=== PATIENT | female | born 1970 | race Caucasian/White ===

== ENCOUNTER 2018-03-13 20:50 | Emergency (ER) | payer OTHER, SELFPAY ==
--- NOTE | 2018-03-13 22:52 | RAD ---
THREE VIEWS LUMBAR SPINE: 03/13/18 HISTORY: Low back pain and right hip pain. FINDINGS: There are five nonribbearing lumbar type vertebral bodies. The vertebral body heights are within norm al limits. No fracture or subluxation is seen. Minimal osteophytes are seen anteriorly in the lower l umbar spine as well as at the T10-11 level. Phleboliths overlie the pelvis. Surgical clips overlie th e right upper quadrant. IMPRESSION: Minimal degenerative changes of the lumbar spine, but no fracture or subluxation is seen. POS: [facility]UL[facility]
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
[2018-03-13] MEDS ORDERED: Ketorolac Tromethamine 30 MG/ML VIAL ONE (23:05)
== END 2018-03-13 23:39 | disposition home or self-care (01) ==
LOC: ERS 20:50
DX: M25.551 Pain in right hip (principal); E03.9 Hypothyroidism, unspecified; G43.909 Migraine, unspecified, not intractable, without status migrainosus; F41.9 Anxiety disorder, unspecified; F32.9 Major depressive disorder, single episode, unspecified; F17.210 Nicotine dependence, cigarettes, uncomplicated; Z79.899 Other long term (current) drug therapy; V89.2XXA Person injured in unspecified motor-vehicle accident, traffic, initial encounter
CPT/HCPCS: 72100; 96372; J1885

== ENCOUNTER 2018-07-09 14:15 | Outpatient (CLI) | payer OTHER ==
--- NOTE | 2018-07-09 15:58 | RAD ---
RIGHT LEG 2 VIEWS: Date: 07/09/18 HISTORY: Pain in right mid holder/leg. FINDINGS/IMPRESSION: No bony abnormality is seen. POS: [facility]
== END 2018-07-09 14:16 | disposition home or self-care (01) ==
LOC: RAD-FRANK 14:15
PROVIDERS: ATTEND Nurse Practitioner Family
DX: M79.661 Pain in right lower leg (principal); M79.89 Other specified soft tissue disorders

== ENCOUNTER 2021-06-27 15:32 | Outpatient (CLI) | payer OTHER | END 2021-06-27 15:33 | disposition home or self-care (01) | LOC: DTY/OP 15:32 | PROVIDERS: ATTEND Specialist | DX: Z01.818 Encounter for other preprocedural examination (principal); E66.01 Morbid (severe) obesity due to excess calories | CPT/HCPCS: 97802 ==

== ENCOUNTER 2021-10-30 10:29 | Outpatient (CLI) | payer OTHER | END 2021-10-30 10:30 | disposition home or self-care (01) | LOC: DTY/OP 10:29 | PROVIDERS: ATTEND Specialist | DX: Z01.818 Encounter for other preprocedural examination (principal); E66.01 Morbid (severe) obesity due to excess calories; Z71.3 Dietary counseling and surveillance | CPT/HCPCS: 97802 ==

== ENCOUNTER 2022-01-07 07:52 | Emergency (ER) | payer OTHER, SELFPAY | END 2022-01-07 08:58 | disposition home or self-care (01) | LOC: ERS 07:52 | DX: U07.1 COVID-19 (principal); E03.9 Hypothyroidism, unspecified; F17.210 Nicotine dependence, cigarettes, uncomplicated; Z79.899 Other long term (current) drug therapy | CPT/HCPCS: 99283; U0003; U0005 ==

== ENCOUNTER 2022-04-17 12:30 | Inpatient (IN) | payer OTHER ==
[2022-05-15 09:13] VITALS: BMI 37.9
[2022-05-16] MEDS ORDERED: Heparin 5,000 UNITS/ML VIAL ONE (06:11)
[2022-05-16] MEDS ORDERED: Ketorolac Tromethamine 30 MG/ML VIAL ONE ×2 (06:11→12:29)
[2022-05-16] MEDS ORDERED: Acetaminophen 500 MG TAB ONE (06:11)
[2022-05-16] MEDS ORDERED: SUGAMMADEX SODIUM 200 MG/2 ML VIAL ONE (06:15)
[2022-05-16] MEDS ORDERED: fentaNYL PF 100 MCG/2 ML SYRINGE ONE ×2 (06:15→10:18)
[2022-05-16] MEDS ORDERED: Bupivacaine/Epinephrine 0.25% 30 ML VIAL ONE (06:23)
[2022-05-16] MEDS ORDERED: Midazolam HCl 2 mg/2 ml Vial ONE (06:41)
[2022-05-16 06:44] LABS: SARS-CoV-2 NAA Rapid Test Not Detected (NotDetected)
[2022-05-16] MEDS ORDERED: cefOXitin 2 GM VIAL ONE (06:48)
[2022-05-16] MEDS ORDERED: Promethazine HCl 25 MG/ML VIAL IVPB PRN (06:48)
[2022-05-16] MEDS ORDERED: Ondansetron HCl/PF 4 MG/2 ML Vial IVP PRN (06:48)
[2022-05-16] MEDS ORDERED: Sodium Chloride 0.9% 100 ML ONE (06:48)
[2022-05-16] MEDS ORDERED: Promethazine HCl 25 MG/ML VIAL IM PRN (06:48)
[2022-05-16] MEDS ORDERED: diphenhydrAMINE 50 MG/ML VIAL ONE (06:54)
[2022-05-16] MEDS ORDERED: Ondansetron PF 4 MG/2 ML Vial ONE (06:54)
[2022-05-16] MEDS ORDERED: PROPOFOL 200 MG/20 ML VIAL ONE (06:54)
[2022-05-16] MEDS ORDERED: Dexamethasone 20 MG/5 ML VIAL ONE (06:54)
[2022-05-16] MEDS ORDERED: Rocuronium Bromide 10 MG/ML (10ML VIAL) ONE (06:54)
[2022-05-16] MEDS ORDERED: hydrALAZINE 20 MG/ML VIAL SLOW IVP PRN (07:03)
[2022-05-16] MEDS ORDERED: diphenhydrAMINE 50 MG/ML VIAL IVP PRN (07:03)
[2022-05-16] MEDS ORDERED: Ondansetron PF 4 MG/2 ML Vial IVP PRN (07:03)
[2022-05-16] MEDS ORDERED: D5 1/2 NS w/20 mEq KCL 1,000 ML ONE (10:00)
[2022-05-16] MEDS: D5 1/2 NS w/20 mEq KCL 1,000 ML IV SCH ×3 (10:04→23:18)
[2022-05-16] MEDS: Pantoprazole 40 MG VIAL IVP SCH (10:25)
[2022-05-16] MEDS ORDERED: FENTANYL 50 MCG/ML 1 ML VIAL SLOW IVP PRN (12:03)
[2022-05-16] MEDS: Losartan 25 MG TAB PO SCH (12:30)
[2022-05-16] MEDS: Ketorolac Tromethamine 30 MG/ML VIAL IVP SCH ×3 (12:30→23:18)
[2022-05-16] MEDS: FLUoxetine HCl 20 MG CAP PO SCH ×2 (12:30→20:40)
[2022-05-16] MEDS ORDERED: FENTANYL 50 MCG/ML 1 ML VIAL ONE (14:17)
[2022-05-16] MEDS: Hydrocodone-Acetamin 15 ML UDCUP PO PRN ×2 (16:24→20:38)
[2022-05-16] MEDS ORDERED: traZODone HCl 50 MG TAB PO SCH (21:00)
[2022-05-16] MEDS ORDERED: Enoxaparin Sodium 40 MG/0.4 ML SYRINGE SC SCH (21:00)
[2022-05-16] MEDS ORDERED: Gabapentin 300 MG CAP PO SCH (21:00)
[2022-05-17] MEDS: Ketorolac Tromethamine 30 MG/ML VIAL IVP SCH (05:26)
[2022-05-17] MEDS: Hydrocodone-Acetamin 15 ML UDCUP PO PRN (05:27)
[2022-05-17 05:54] LABS: #Basophils 0.1 thou/uL (0.0-0.2); #Lymphocytes 1.8 thou/uL (1.20-3.40); #Monocytes 0.9 thou/uL (0.11-0.59); #Neutrophils 15.2 thou/uL (1.40-6.50); %Basophils 0.3 % (0.0-1.0); %Eosinophils 0.1 % (0.0-10.0); %Lymphocytes 9.9 % (21.0-51.0); %Monocytes 5.1 % (0.0-10.0); %Neutrophils 84.5 % (42.0-75.0); Hemoglobin 13.4 g/dL (12.0-16.0); Mean Corpuscular HGB CONC 32.8 g/dL (32.0-36.0); Mean Corpuscular Hemoglobin 30.9 pg (27.0-31.0); Mean Corpuscular Volume 94.1 fl (78.0-98.0); Mean Platelet Volume 8.7 fL (7.4-10.4); Platelet Count 173 10x3/uL (130-400); RBC Distribution Width 12.2 % (11.5-14.5); Red Blood Cell (RBC) Count 4.34 mill/uL (4.20-5.40); White Blood Cell (WBC) Count 17.9 10x3/uL (4.8-10.8)
[2022-05-17] MEDS ORDERED: Thyroid 30 MG TAB PO SCH (06:00)
[2022-05-17 06:15] LABS: Anion Gap 13 mmol/L (10-20); BUN (Urea Nitrogen) 12 mg/dL (9.8-20.1); Calc. Creatinine Clearance 132 mL/min (70-130); Calcium 8.8 mg/dL (7.8-10.44); Carbon Dioxide 22 mmol/L (22-29); Chloride 107 mmol/L (98-107); Estimated GFR 83; Glucose 121 mg/dL (70-105); Potassium 3.9 mmol/L (3.5-5.1); Sodium 138 mmol/L (136-145)
[2022-05-17] MEDS: D5 1/2 NS w/20 mEq KCL 1,000 ML IV SCH (06:30)
[2022-05-17 08:32] VITALS: BP 132/79; TEMP 97.8
[2022-05-17] MEDS: FLUoxetine HCl 20 MG CAP PO SCH (09:46)
[2022-05-17] MEDS: Losartan 25 MG TAB PO SCH (09:46)
[2022-05-17] MEDS: Pantoprazole 40 MG VIAL IVP SCH (09:46)
[2022-05-17] MEDS ORDERED: Hydrocodone-Acetamin 15 ML UDCUP PO PRN (11:09)
== END 2022-05-17 12:00 | disposition home or self-care (01) | DRG 621 ==
LOC: SURG A 05-16 05:47
PROVIDERS: ADMIT Specialist; ATTEND Specialist
PROC: 0D164ZA Bypass Stomach to Jejunum, Percutaneous Endoscopic Approach (ICD-10-PCS; principal; 2022-05-16)
DX: E66.01 Morbid (severe) obesity due to excess calories (principal); Z68.41 Body mass index [BMI] 40.0-44.9, adult; G47.33 Obstructive sleep apnea (adult) (pediatric); E78.00 Pure hypercholesterolemia, unspecified; I10 Essential (primary) hypertension; I25.10 Atherosclerotic heart disease of native coronary artery without angina pectoris; G43.909 Migraine, unspecified, not intractable, without status migrainosus; K21.9 Gastro-esophageal reflux disease without esophagitis; R32 Unspecified urinary incontinence; Z20.822 Contact with and (suspected) exposure to COVID-19; Z90.49 Acquired absence of other specified parts of digestive tract; Z90.710 Acquired absence of both cervix and uterus; Z98.890 Other specified postprocedural states; Z88.8 Allergy status to other drugs, medicaments and biological substances; Z88.0 Allergy status to penicillin; Z88.1 Allergy status to other antibiotic agents
CPT/HCPCS: 36415; 80048; 85025; A4649; C1713; C1889; C9113; J0694; J1100; J1200; J1644; J1650; J1885; J2250; J2405; J2704; J3010; J3480; J3490; U0002

== ENCOUNTER 2022-05-14 11:54 | Outpatient (CLI) | payer OTHER ==
[2022-05-14 13:17] LABS: #Basophils 0.1 10x3/uL (0.0-0.2); #Eosinphils 0.2 10x3/uL (0.0-0.5); #Monocytes 0.6 10x3/uL (0.0-1.1); #Neutrophils 5.7 10x3/uL (1.5-8.4); %Basophils 0.5 % (0.0-2.0); %Eosinophils 1.9 % (0.0-6.0); %Lymphocytes 33.7 % (18.0-47.0); %Monocytes 6.2 % (0.0-10.0); %Neutrophils 57.3 % (40.0-75.0); Hemoglobin 13.4 g/dL (12.0-15.5); Mean Corpuscular HGB CONC 33.2 g/dL (32.0-36.0); Mean Corpuscular Volume 90.4 fl (81.6-98.3); Mean Platelet Volume 10.9 fl (7.4-10.4); Platelet Count 213 10x3/uL (150-450); RBC Distribution Width 13.1 % (11.5-14.5); Red Blood Cell (RBC) Count 4.47 10x6/uL (3.90-5.03); White Blood Cell (WBC) Count 9.9 10x3/uL (3.5-10.5)
[2022-05-14 13:42] LABS: Anion Gap 14 mmol/L (10-20); BUN (Urea Nitrogen) 24 mg/dL (9.8-20.1); Calc. Creatinine Clearance 0 mL/min (70-130); Calcium 9.2 mg/dL (7.8-10.44); Carbon Dioxide 23 mmol/L (22-29); Chloride 105 mmol/L (98-107); Estimated GFR 76; Glucose 93 mg/dL (70-105); Potassium 4.1 mmol/L (3.5-5.1); Sodium 138 mmol/L (136-145)
[2022-05-14 17:11] LABS: Hemoglobin A1c 5.4 % (4.0-6.0)
== END 2022-05-14 11:55 | disposition home or self-care (01) ==
LOC: LABBT 11:54
PROVIDERS: ATTEND Specialist
DX: Z01.812 Encounter for preprocedural laboratory examination (principal); E66.01 Morbid (severe) obesity due to excess calories; G47.33 Obstructive sleep apnea (adult) (pediatric); I10 Essential (primary) hypertension
CPT/HCPCS: 80048; 83036; 85025; 93005; 93010

== ENCOUNTER 2022-06-28 13:18 | Outpatient (CLI) | payer BC, OTHER | END 2022-06-28 13:19 | disposition home or self-care (01) | LOC: CT 13:18 | PROVIDERS: ATTEND Specialist | DX: K57.32 Diverticulitis of large intestine without perforation or abscess without bleeding (principal) | CPT/HCPCS: 74177 ==

== ENCOUNTER 2022-10-07 08:11 | Emergency (ER) | payer BC ==
[2022-10-07] MEDS ORDERED: Ondansetron PF 4 MG/2 ML Vial ONE (09:09)
[2022-10-07] MEDS ORDERED: fentaNYL 50 mcg/mL 1 mL Vial ONE (09:09)
[2022-10-07 09:18] LABS: #Eosinphils 0.1 thou/uL (0.0-0.7); #Lymphocytes 2.2 thou/uL (1.20-3.40); #Monocytes 0.6 thou/uL (0.11-0.59); #Neutrophils 8.3 thou/uL (1.40-6.50); %Basophils 0.2 % (0.0-1.0); %Eosinophils 1.2 % (0.0-10.0); %Lymphocytes 19.5 % (21.0-51.0); %Monocytes 5.1 % (0.0-10.0); Hemoglobin 12.4 g/dL (12.0-16.0); Mean Corpuscular HGB CONC 33.6 g/dL (32.0-36.0); Mean Corpuscular Hemoglobin 30.8 pg (27.0-31.0); Mean Corpuscular Volume 91.6 fl (78.0-98.0); Mean Platelet Volume 9.3 fL (7.4-10.4); Platelet Count 141 10x3/uL (130-400); RBC Distribution Width 13.9 % (11.5-14.5); Red Blood Cell (RBC) Count 4.02 mill/uL (4.20-5.40); White Blood Cell (WBC) Count 11.2 10x3/uL (4.8-10.8)
[2022-10-07 09:35] LABS: Bilirubin Negative (Negative); Blood, Urine Negative (Negative); Glucose, Urine (Dipstick) Normal (Negative); Ketone, Urine Negative (Negative); Leukocyte Negative Leu/uL (Negative); Nitrite Negative (Negative); Protein, Urine (Dipstick) Negative (Neg-Trace); Specific Gravity, Urine 1.022 (1.002-1.036); Urobilinogen Normal mg/dL (Less than 2)
[2022-10-07 09:40] LABS: ALT (SGPT) 33 U/L (8-55); AST (SGOT) 18 U/L (5-34); Albumin 3.8 g/dL (3.5-5.0); Alkaline Phosphatase 80 U/L (40-110); Anion Gap 12 mmol/L (10-20); BUN (Urea Nitrogen) 23 mg/dL (9.8-20.1); Bilirubin, Total 0.4 mg/dL (0.2-1.2); Calc. Creatinine Clearance 0 mL/min (70-130); Calcium 8.8 mg/dL (7.8-10.44); Carbon Dioxide 25 mmol/L (22-29); Chloride 105 mmol/L (98-107); Estimated GFR 88; Globulin 2.5 g/dL (2.4-3.5); Glucose 88 mg/dL (70-105); Lipase 14 U/L (8-78); Potassium 3.9 mmol/L (3.5-5.1); Protein, Total 6.3 g/dL (6.0-8.3); Sodium 138 mmol/L (136-145)
[2022-10-07 09:42] LABS: Clarity Hazy (Clear)
[2022-10-07 09:43] LABS: Pregnancy Test - Urine (BHCG) Negative (Negative); Pregu Control Background? CLEAR/WHITE (CLR/WHITE); Pregu Control Bar Appear? YES (CONTROL BAR); Specific Gravity 1.022 (1.002-1.036)
[2022-10-07] MEDS ORDERED: Iopamidol-370 76% 500 ML MDV (1 ML CHARGE) ONE (15:45)
== END 2022-10-07 12:12 | disposition home or self-care (01) ==
LOC: ERS 08:11
DX: K59.00 Constipation, unspecified (principal); E03.9 Hypothyroidism, unspecified; Z87.891 Personal history of nicotine dependence; Z79.899 Other long term (current) drug therapy
CPT/HCPCS: 74177; 80053; 81003; 81025; 83690; 85025; 96374; 96375; J2405; J3010; Q9967

== ENCOUNTER 2024-07-05 08:50 | Emergency (ER) | payer BC ==
[2024-07-05] MEDS ORDERED: Dexamethasone 10 MG/ML VIAL ONE (09:32)
[2024-07-05] MEDS ORDERED: diphenhydrAMINE 50 MG/ML VIAL ONE (09:32)
[2024-07-05] MEDS ORDERED: Magnesium 2 GM/50 ML BAG (IN WATER) ONE (09:36)
[2024-07-05] MEDS ORDERED: Famotidine/PF 20 mg/2ml Vial ONE (09:36)
[2024-07-05 09:40] LABS: #Basophils Less than 0.03 10x3/uL (0.0-0.2); %Basophils 0.2 % (0.0-1.0); %Eosinophils 0.7 % (0.0-10.0); %Lymphocytes 19.5 % (21.0-51.0); %Monocytes 6.6 % (0.0-10.0); Hematocrit 41.9 % (36.0-47.0); Hemoglobin 13.7 g/dL (12.0-16.0); Mean Corpuscular HGB CONC 32.7 g/dL (32.0-36.0); Mean Corpuscular Hemoglobin 30.6 pg (27.0-31.0); Mean Corpuscular Volume 93.7 fL (78.0-98.0); Mean Platelet Volume 10.6 fL (7.4-10.4); Platelet Count 121 10x3/uL (130-400); RBC Distribution Width 12.9 % (11.5-14.5); Red Blood Cell (RBC) Count 4.47 mill/uL (4.20-5.40)
[2024-07-05 09:42] LABS: Bacteria/HPF None Seen HPF (None Seen); Bilirubin Negative (Negative); Blood, Urine Negative (Negative); CAUTI Indications for Culture Pelvic or flank pain; Clarity Clear (Clear); Glucose, Urine (Dipstick) Normal (Negative); Ketone, Urine Negative (Negative); Leukocyte Negative Leu/uL (Negative); Nitrite Negative (Negative); Protein, Urine (Dipstick) Negative (Neg-Trace); RBC/HPF 0-3 HPF (0-3); Specific Gravity, Urine 1.021 (1.002-1.036); Squamous Epithelial 0-3 HPF (0-3); Urobilinogen Normal mg/dL (Less than 2); WBC/HPF 0-3 HPF (0-3)
[2024-07-05 09:45] LABS: Urine Culture Reflex No No
[2024-07-05 10:08] LABS: ALT (SGPT) 37 U/L (8-55); AST (SGOT) 34 U/L (5-34); Albumin 3.5 g/dL (3.5-5.0); Alkaline Phosphatase 71 U/L (40-110); Anion Gap 11 mmol/L (10-20); BUN (Urea Nitrogen) 17 mg/dL (9.8-20.1); Bilirubin, Total 0.3 mg/dL (0.2-1.2); Calc. Creatinine Clearance 0 mL/min (70-130); Calcium 8.8 mg/dL (7.8-10.44); Carbon Dioxide 27 mmol/L (22-29); Chloride 105 mmol/L (98-107); Estimated GFR 92; Globulin 3.2 g/dL (2.4-3.5); Glucose 80 mg/dL (70-105); Lipase 62 U/L (8-78); Protein, Total 6.7 g/dL (6.0-8.3); Sodium 139 mmol/L (136-145)
[2024-07-05] MEDS ORDERED: Iopamidol-370 76% 500 ML MDV (1 ML CHARGE) ONE (11:30)
== END 2024-07-05 12:28 | disposition home or self-care (01) ==
LOC: ERS 08:50
DX: J11.1 Influenza due to unidentified influenza virus with other respiratory manifestations (principal); Z87.891 Personal history of nicotine dependence
CPT/HCPCS: 36415; 71046; 74177; 80053; 81001; 83605; 83690; 85025; 87428; 96365; 96375; J1100; J1200; J3475; J3490